=== PATIENT | male | born 1960 | race Caucasian/White ===

== ENCOUNTER → 2022-08-04 16:18 | Outpatient (CLI) | payer OTHER, SELFPAY ==
--- NOTE | ~2022-08-04 | XR_ITS ---
XR hand LT min 3V DATE: 08/04/2022 16:40 INDICATION: Hand pain and numbness TECHNIQUE: 3 views COMPARISON: None FINDINGS: There is joint space narrowing and spurring at the radiocarpal joint consistent with osteoa rthritis. Some benign cysts of the carpal bones are noted. There is mild osteoarthritic change at the second, third and fourth the carpophalangeal joints and mi ld osteophytic changes of the interphalangeal joints. No fracture, dislocation, periosteal reaction or bone destruction, erosive change or chondrocalcinosi s. IMPRESSION: Polyarticular osteoarthritis Reviewed, dictated and finalized at location A. DE SALES PERSON
--- NOTE | ~2022-08-04 | XR_ITS ---
XR wrist LT min 3V DATE: 08/04/2022 16:40 INDICATION: Numbness and pain of hands and wrists TECHNIQUE: 3 views COMPARISON: None FINDINGS: There is pulmonary radiocarpal joint with some spurring. There is some benign cysts of the carpal bones. There is mild osteoarthritis at the first carpometacarpal joint. Osteoarthritic change is noted secon d through fourth metacarpophalangeal joints. No fracture or dislocation, periosteal reaction or bone destruction. No erosive change or chondrocalc inosis. IMPRESSION: Polyarticular osteoarthritis Reviewed, dictated and finalized at location A. SCHOOL HISTORY TEACHER
--- NOTE | ~2022-08-04 | XR_ITS ---
XR wrist RT min 3V DATE: 08/04/2022 16:40 INDICATION: Pain and numbness of wrist and hands TECHNIQUE: 3 views COMPARISON: None FINDINGS: There is osteoarthritis at the second and third metacarpophalangeal joints. There are benig n cysts of the carpal bones. No fracture, dislocation, periosteal reaction or bone destruction. IMPRESSION: Osteoarthritis Reviewed, dictated and finalized at location A. [employer] IMPRESSION: Osteoarthritis
--- NOTE | ~2022-08-04 | XR_ITS ---
XR hand RT min 3V DATE: 08/04/2022 16:40 INDICATION: Numbness and pain of the hands. TECHNIQUE: 3 views COMPARISON: None FINDINGS: Is there are benign cysts are noted at the carpal bones. There is mild joint space narrowin g and spurring at the third metacarpophalangeal joint and mild osteoarthritic change at some of the i nterphalangeal joints. No fracture, dislocation, periosteal reaction or bone destruction, erosive change or chondrocalcinosi s. IMPRESSION: Mild polyarticular osteoarthritis Reviewed, dictated and finalized at location A. IMEDIA AUTHORING SPECIALIST
== END ==
PROVIDERS: PCP Internal Medicine; Visit Provider Internal Medicine
DX: M19.031 Primary osteoarthritis, right wrist (principal); M19.032 Primary osteoarthritis, left wrist; M19.041 Primary osteoarthritis, right hand; M19.042 Primary osteoarthritis, left hand
CPT/HCPCS: 73110; 73130

== ENCOUNTER 2023-05-20 08:41 | Outpatient (CLI) | payer BC, SELFPAY ==
--- NOTE | 2023-05-20 10:30 | NEURO_ITS ---
Impression: # Complains of nocturnal paresthesia. History of right Bicep tendon rupture couple years ago. # Bilateral Carpal Tunnel Syndrome, left more than right. # No ulnar neuropathy. # Left ulnar to median cross innervation noted. # Needle/EMG exam on the right abnormal because of bicep rupture/surgery unrelated to present problem. Nerve Conduction Studies Anti Sensory Summary Table Stim Site NR Peak (ms) P-T Amp (?V) Site1 Site2 Delta-P (ms) Dist (cm) Vaibhav (m/s) Left Median Anti Sensory (2-3nd Digit) Wrist 5.5 24.4 Wrist 2-3nd Digit 5.5 14.0 25 Wrist 6.3 18.9 Wrist 2-3nd Digit 5.5 14.0 25 Right Median Anti Sensory (2-3nd Digit) Wrist 4.7 10.9 Wrist 2-3nd Digit 4.7 14.0 30 Wrist 4.6 8.6 Wrist 2-3nd Digit 4.7 14.0 30 Left Radial Anti Sensory (Base 1st Digit) Wrist 2.2 39.0 Wrist Base 1st Digit 2.2 0.0 Right Radial Anti Sensory (Base 1st Digit) NO RESPONSE Wrist NR Wrist Base 1st Digit 0.0 Left Ulnar Anti Sensory (5th Digit) Wrist 2.5 65.3 Wrist 5th Digit 2.5 14.0 56 Right Ulnar Anti Sensory (5th Digit) Wrist 2.4 31.8 Wrist 5th Digit 2.4 14.0 58 Motor Summary Table Stim Site NR Onset (ms) O-P Amp (mV) Site1 Site2 Delta-0 (ms) Dist (cm) Vaibhav (m/s) Left Median Motor (Abd Poll Brev) Wrist 5.3 1.5 Elbow Wrist 4.7 27.0 57 Elbow 10.0 2.3 Right Median Motor (Abd Poll Brev) Wrist 4.6 1.3 Elbow Wrist 7.7 28.0 36 Elbow 12.3 1.3 Left Ulnar Motor (Abd Dig Minimi) Wrist 2.6 7.2 A Elbow Wrist 4.6 28.0 61 A Elbow 7.2 6.5 Right Ulnar Motor (Abd Dig Minimi) Wrist 2.4 6.6 A Elbow Wrist 4.9 28.0 57 A Elbow 7.3 6.0 F Wave Studies NR F-Lat (ms) L-R F-Lat (ms) Left Median (Mrkrs) (Abd Poll Brev) 29.29 1.64 Right Median (Mrkrs) (Abd Poll Brev) 30.92 1.64 Left Ulnar (Mrkrs) (Abd Dig Min) 29.74 0.00 Right Ulnar (Mrkrs) (Abd Dig Min) 29.75 0.00 EMG Side Muscle Nerve Root Ins Act Fibs Amp Dur Recrt Comment Right 1stDorInt Ulnar C8-T1 Nml Nml Nml Nml Nml Right Ext Indicis Radial (Post Int) C7-8 Nml Nml Nml Nml Nml Right Ext Digitorum Radial (Post Int) C7-8 Nml Nml Nml Nml Nml Right BrachioRad Radial C5-6 Nml Nml Nml Nml Reduced Right PronatorTeres Median C6-7 Nml Nml Nml Nml Reduced Right Abd Poll Brev Median C8-T1 Nml Nml Incr >12ms Reduced Left 1stDorInt Ulnar C8-T1 Nml Nml Nml Nml Nml Left Ext Indicis Radial (Post Int) C7-8 Nml Nml Nml Nml Nml Left Ext Digitorum Radial (Post Int) C7-8 Nml Nml Nml Nml Nml Left BrachioRad Radial C5-6 Nml Nml Nml Nml Nml Left PronatorTeres Median C6-7 Nml Nml Nml Nml Nml Left Abd Poll Brev Median C8-T1 Nml Nml Incr >12ms Reduced Right Biceps Musculocut C5-6 Nml Nml Nml Nml Nml Right Triceps Radial C6-7-8 Nml Nml Nml Nml Nml Right Deltoid Axillary C5-6 Nml Nml Nml Nml Nml Left Biceps Musculocut C5-6 Nml Nml Nml Nml Nml Left Triceps Radial C6-7-8 Nml Nml Nml Nml Nml Left Deltoid Axillary C5-6 Nml Nml Nml Nml Nml MTDD
== END 2023-05-20 08:42 | disposition home or self-care (01) ==
LOC: ANHNEURO 08:44
PROVIDERS: PCP Internal Medicine; Visit Provider Internal Medicine
DX: G56.03 Carpal tunnel syndrome, bilateral upper limbs (principal)
CPT/HCPCS: 95886; 95911

== ENCOUNTER 2023-10-22 02:24 | Day surgery (SDC) | payer BC, SELFPAY ==
[2023-10-01 10:53] VITALS: BMI 26.6
--- NOTE | 2023-10-20 10:51 | SUR.PREOP ---
Patient called regarding upcoming procedure. Reviewed preop instructions, appointment times, and procedure prep.
[2023-10-22 06:44] VITALS: BP 119/67; PULSE 74; RESP 18; TEMP 36.1; O2SAT 99
[2023-10-22] MEDS: LACTATED RINGERS 1,000 ML 150 ML IV CONT (06:56)
--- NOTE | 2023-10-22 08:06 | P.PNAN_ITS ---
Anes - Initial Pre Proc Eval Procedure: Operation Date: 10/22/23 08:00 Proposed Procedures p Screening Colonoscopy - Kd Woods DO Date/Time: 10/22/23 08:06 Surgeon: Kd Woods DO Pre Op Diagnosis: hx colon polyps Patient Data Age: 62 Gender: M Height: 1.7 m Weight: 77.3 kg Last Vital Signs Temp 97 F L 10/22/23 06:44 Pulse 74 10/22/23 06:44 Resp 18 10/22/23 06:44 BP 119/67 10/22/23 06:44 Pulse Ox 99 10/22/23 06:44 O2 Del Method Room Air 10/22/23 06:44 Allergies Allergy/AdvReac Type Severity Reaction Status Date / Time No Known Allergies Allergy Unverified 10/22/23 06:43 Home Medications Medication Instructions Recorded Confirmed Type atorvastatin 40 mg tablet 40 mg PO DAILY 05/26/23 10/01/23 History escitalopram oxalate 10 mg tablet 10 mg PO DAILY 05/26/23 10/01/23 History lisinopril 10 1 tablet PO DAILY 05/26/23 10/01/23 History mg-hydrochlorothiazide 12.5 mg tablet zolpidem 10 mg tablet 10 mg PO QHS 05/26/23 10/01/23 History Patient hx anesthesia problems: none Family hx anesthesia problems: none Results Review: All pre-operative results and documents have been reviewed as part of the pre- operative evaluation. [facility] Family History Family History (Updated 04/22/19 @ 08:44 by DOCTOR UNKNOWN) Other Diabetes mellitus Social History Social History (Updated 05/26/23 @ 09:30 by Maddy Clifton MA) Smoking packs per day: 1 Smoking cigarettes per day: 20.0 Years smoked: 20 Smoking pack-years: 20.00 Smoking status: Former smoker Tobacco type: cigarettes Smoking end date: 09/28/16 Alcohol intake: current Drinks per week: 6 Alcohol use details: BEERS Substance use: never Substance use type: does not use Lack of Transportation: No Lack of Food: Never True Current Housing: I Have Housing Concerned About Future Housing: No Difficulty Paying Gas/Electric Bills: No Difficulty Paying for Meds: No Currently Unemployed: No Education: Bachelor's Degree Difficulty w/ Childcare or Family Care: No Living arrangements: with family Spiritual care concerns: No Anes - Eval Final PreProcedure Day of Procedure 10/22/23 08:06 Patient weight: normal Heart: regular rate and rhythm Lungs: clear to auscultation Airway: Mallampati scale class II Neurological: alert and oriented Last oral intake: >/= 8 hours ASA classification: II Emergent: no Anesthetic plan: proceed Anesthesia type and monitoring: general GIVS and standard monitoring Results Review: All pre-operative results and documents have been reviewed as part of the pre- operative evaluation. Informed Consent: The patient's anesthetic plan and its attendant risks and benefits were discussed with the patient/family/POA. Questions were solicited and answers provided to the satisfaction of the patient/family/POA.
--- NOTE | 2023-10-22 08:07 | PM.IMHP ---
H&P: HPI History of Present Illness Date/Time: 10/22/23 08:07 Chief Complaint: history of colon polyps Narrative: this is a 62-year-old man presents for colonoscopy. His last colonoscopy was 6 years ago and was normal. Before that he did history of polyps on colonoscopy. He denies any hematochezia or melena. He denies any family history of colon cancer. Review of Systems Review of Systems: All systems reviewed & are unremarkable except as noted in HPI and below Constitutional: Constitutional: Denies chills, Denies fever(s), Denies headache(s) and Denies weight loss Eyes: Eyes: Denies change in vision ENT: Denies dizziness, Denies headache(s), Denies neck mass and Denies throat swelling Cardiovascular: Cardiovascular: Denies chest pain, Denies lightheadedness and Denies dyspnea Respiratory: Respiratory: Denies cough, Denies dyspnea and Denies wheezing Gastrointestinal: Gastrointestinal: Denies abdominal pain, Denies change in bowel habits, Denies nausea and Denies vomiting Genitourinary: Genitourinary: Denies hematuria and Denies dysuria Musculoskeletal: Musculoskeletal: Reports as per HPI Integumentary/Breasts: Skin/Breast: Reports as per HPI Neurologic: Denies dizziness and Denies headache(s) Allergic/Immunologic: Allergic/Immunologic: Denies throat swelling and Denies wheezing [facility] Family History Family History (Updated 04/22/19 @ 08:44 by DOCTOR UNKNOWN) Other Diabetes mellitus Social History Social History (Updated 05/26/23 @ 09:30 by Maddy Clifton MA) Smoking packs per day: 1 Smoking cigarettes per day: 20.0 Years smoked: 20 Smoking pack-years: 20.00 Smoking status: Former smoker Tobacco type: cigarettes Smoking end date: 09/28/16 Alcohol intake: current Drinks per week: 6 Alcohol use details: BEERS Substance use: never Substance use type: does not use Lack of Transportation: No Lack of Food: Never True Current Housing: I Have Housing Concerned About Future Housing: No Difficulty Paying Gas/Electric Bills: No Difficulty Paying for Meds: No Currently Unemployed: No Education: Bachelor's Degree Difficulty w/ Childcare or Family Care: No Living arrangements: with family Spiritual care concerns: No Meds Home Medications and Allergies Home Medications Medication Instructions Recorded Confirmed Type atorvastatin 40 mg tablet 40 mg PO DAILY 05/26/23 10/01/23 History escitalopram oxalate 10 mg tablet 10 mg PO DAILY 05/26/23 10/01/23 History lisinopril 10 1 tablet PO DAILY 05/26/23 10/01/23 History mg-hydrochlorothiazide 12.5 mg tablet zolpidem 10 mg tablet 10 mg PO QHS 05/26/23 10/01/23 History Allergies Allergy/AdvReac Type Severity Reaction Status Date / Time No Known Allergies Allergy Unverified 10/22/23 06:43 Vital Signs Vital Signs - 24 hr 10/22/23 06:44 Temperature 36.1 C L Pulse Rate 74 Respiratory Rate 18 Blood Pressure 119/67 Pulse Oximetry 99 Oxygen Delivery Room Air Exam Const: General: no acute distress and alert Orientation/consciousness: patient oriented x3 HENMT: Head: normocephalic and atraumatic Ears: hearing grossly normal bilaterally Face/Nose/Sinus: Normal nares present Mouth: Yes Normal oral and palatal mucosa present Eyes: Periorbital: periorbital findings normal Sclera: sclerae normal EOM: EOMs intact bilaterally Neck: Neck: normal visual inspection, no lymphadenopathy and trachea midline Chest: Chest palpation & inspection: normal inspection of the chest Resp: Effort & Inspection: normal respiratory effort Auscultation: clear to auscultation bilaterally Cardio: Jugular venous distension: no JVD Rate: regular rate Rhythm: regular rhythm Heart sounds: S1 normal heart sound present and S2 normal heart sound present Peripheral pulses: Peripheral pulses 2+ throughout GI: Inspection: normal to inspection GI Palp: Yes Soft to palpation, No Tenderness to palpat
[2023-10-22 08:51] VITALS: BP 108/68; PULSE 78; RESP 18; O2SAT 98
[2023-10-22 09:01] VITALS: BP 111/72; PULSE 68; RESP 17; O2SAT 100
[2023-10-22 09:11] VITALS: BP 112/67; PULSE 67; RESP 22; O2SAT 100
== END 2023-10-22 09:21 | disposition home or self-care (01) ==
PROVIDERS: PCP Internal Medicine; Visit Provider Surgery
PROC: 0DJD8ZZ Inspection of Lower Intestinal Tract, Via Natural or Artificial Opening Endoscopic (ICD-10-PCS; CPT 45378; principal; 2023-10-22 08:00)
DX: Z12.11 Encounter for screening for malignant neoplasm of colon (principal); Z86.010 Personal history of colon polyps; Z87.891 Personal history of nicotine dependence
CPT/HCPCS: 45378; J1596; J2001; J2704; J7120

== ENCOUNTER 2024-05-16 08:10 | Outpatient (CLI) | payer BC, SELFPAY ==
--- NOTE | ~2024-05-16 | XR_ITS ---
EXAMINATION: XR chest 2V DATE: 05/16/2024 10:09 INDICATION: Fatigue and dyspnea TECHNIQUE: frontal and lateral views of the chest were obtained. COMPARISON: Chest radiograph dated 10/08/2016 FINDINGS: Unchanged small calcified nodule at the right costophrenic angle consistent with old granulomatous di sease. No other airspace opacities, pulmonary edema, pleural effusion or pneumothorax. The cardiomedi astinal silhouette is normal. Visualized bones and soft tissues are unremarkable. IMPRESSION: 1. No acute cardiopulmonary disease. Reviewed, dictated and finalized at location A.
--- NOTE | 2024-05-16 08:21 | EST_ITS ---
Patient Info Name: JoséL uis Nascimento Age: 63 years : 1960 Gender: Male Ht: 66 in Wt: 167 lbs BSA: 1.89 m2 HR: 72 bpm BP: 127 / 76 mmHg Heart Rhythm: Sinus Rhythm Technical Quality: Good Exam Date: 05/16/2024 9:21 AM Exam Location: Echo Lab Patient Status: Outpatient Admit Date: 05/16/2024 Staff Ordering Physician: Percy Humphries MD Attending Provider: Percy Humphries MD Exam Type: CA stress test treadmill w NM Study Info A treadmill exercise stress test was performed. History/Risk Factors Hypertension: Yes Dyslipidemia: Yes Family History: Coronary Artery Disease Summary 1. 1. Negative Mikhail exercise stress test for ischemic ST changes by ECG criteria. 2. 2. Good functional capacity, achieving 10 METs of workload. 3. 3. Hypertensive response to exercise. 4. 4. Appropriate HR response to exercise. 5. 5. Appropriate HR recovery at 1 minute post exercise. 6. 6. Nuclear scan to follow and will be reported separately. Please correlate with it. Protocol: Mikhail Stress ECG Details Stage: REST Duration (min): 2 min : 49 sec Speed (mph): 0.0 Grade (%): 0 HR (bpm): 71 SBP (mmHg): 127 DBP (mmHg): 76 METS: --- Stage: REST Duration (min): 17 min : 43 sec Speed (mph): 0.0 Grade (%): 0 HR (bpm): 84 SBP (mmHg): 127 DBP (mmHg): 76 METS: --- Stage: STAGE 1 Duration (min): 1 min : 0 sec Speed (mph): 1.7 Grade (%): 10 HR (bpm): 92 SBP (mmHg): 127 DBP (mmHg): 76 METS: --- Stage: STAGE 1 Duration (min): 2 min : 0 sec Speed (mph): 1.7 Grade (%): 10 HR (bpm): 103 SBP (mmHg): 127 DBP (mmHg): 76 METS: --- Stage: STAGE 1 Duration (min): 3 min : 0 sec Speed (mph): 1.7 Grade (%): 10 HR (bpm): 103 SBP (mmHg): 171 DBP (mmHg): 76 METS: --- Stage: STAGE 2 Duration (min): 1 min : 0 sec Speed (mph): 2.5 Grade (%): 12 HR (bpm): 113 SBP (mmHg): 171 DBP (mmHg): 76 METS: --- Stage: STAGE 2 Duration (min): 2 min : 0 sec Speed (mph): 2.5 Grade (%): 12 HR (bpm): 118 SBP (mmHg): 171 DBP (mmHg): 76 METS: --- Stage: STAGE 2 Duration (min): 3 min : 0 sec Speed (mph): 2.5 Grade (%): 12 HR (bpm): 121 SBP (mmHg): 196 DBP (mmHg): 89 METS: --- Stage: STAGE 3 Duration (min): 1 min : 0 sec Speed (mph): 3.4 Grade (%): 14 HR (bpm): 134 SBP (mmHg): 196 DBP (mmHg): 89 METS: --- Stage: STAGE 3 Duration (min): 2 min : 0 sec Speed (mph): 3.4 Grade (%): 14 HR (bpm): 143 SBP (mmHg): 196 DBP (mmHg): 89 METS: --- Stage: STAGE 3 Duration (min): 2 min : 0 sec Speed (mph): 3.4 Grade (%): 14 HR (bpm): 143 SBP (mmHg): 196 DBP (mmHg): 89 METS: --- Stage: RECOVERY Duration (min): 0 min : 59 sec Speed (mph): 0.0 Grade (%): 0 HR (bpm): 140 SBP (mmHg): 234 DBP (mmHg): 78 METS: --- Stage: RECOVERY Duration (min): 1 min : 59 sec Speed (mph): 0.0 Grade (%
[2024-05-16 11:40] LABS: Anion Gap 7 mmol/L (4-12); Carbon Dioxide 28 mmol/L (21-32); Chloride 103 mmol/L (98-108); Potassium 4.6 mmol/L (3.5-5.1); Sodium 138 mmol/L (136-145)
[2024-05-16 11:41] LABS: Blood Urea Nitrogen 22 mg/dL (7-18); Calcium 9.3 mg/dL (8.5-10.1); Estimated Glomerular Filt Rate 48; Glucose 120 mg/dL (70-99); Osmolality Calculated 290 mOsm/kg (285-295)
--- NOTE | 2024-05-17 08:52 | WPDCARIOSTRE ---
Nuclear Stress Test INDICATIONS Indications: Chest pain PROCEDURE Procedure Performed: Myocardial Perf Spect-Multi Procedure: Patient exercised on a standard Mikhail protocol and at peak exercise was injected with 30.8 mCi of cardiolyte. Multiple tomographic images were obtained. These are of excellent quality. There is no perfusion defects with stress imaging. A separate resting images were obtained after patient was injected with 10.2 mCi of cardiolyte. Multiple tomographic images were obtained. These are of excellent quality. There is no perfusion defects with rest imaging. CONCLUSION Conclusion: 1. Normal myocardial perfusion imaging demonstrating no perfusion defects with stress or rest imaging. 2. No evidence of reversible ischemia. 3. Left ventriculogram demonstrates normal measured ejection fraction of 55% with no wall motion abnormalities. 4. TID score 0.96 is normal.
== END 2024-05-16 08:11 | disposition home or self-care (01) ==
PROVIDERS: PCP Internal Medicine; Visit Provider Internal Medicine
DX: I10 Essential (primary) hypertension (principal); R07.9 Chest pain, unspecified; R06.02 Shortness of breath
CPT/HCPCS: 36415; 71046; 78452; 80048; 93017; A9502

== ENCOUNTER 2024-07-06 10:44 | Outpatient (CLI) | payer BC, SELFPAY ==
--- NOTE | ~2024-07-06 | XR_ITS ---
Left wrist Technique: PA, oblique, lateral, and ulnar deviation views were obtained. Clinical History: Pain Findings: No acute fracture or dislocation is seen. There is moderate degenerative change of the radi olunate articulation. Remaining joint spaces are intact.. Soft tissues are unremarkable. Impression: Moderate degenerative change of the radiolunate articulation. Reviewed, dictated and finalized at location . Impression: Moderate degenerative change of the radiolunate articulation.
--- NOTE | ~2024-07-06 | XR_ITS ---
Left Hand Technique: PA, oblique, and lateral views were obtained. Clinical History: Pain Findings: No acute fracture or dislocation is seen. Osseous alignment is anatomic. Joint spaces are p reserved. Soft tissues are unremarkable. Impression: Unremarkable left hand. Reviewed, dictated and finalized at location M. Impression: Unremarkable left hand.
--- NOTE | ~2024-07-06 | XR_ITS ---
Right wrist Technique: PA, oblique, lateral, and ulnar deviation views were obtained. Clinical History: Pain Findings: No acute fracture or dislocation is seen. Osseous alignment is anatomic. There is minimal d egenerative change of the triscaphe joint. Soft tissues are unremarkable. Impression: Minimal degenerative change of the triscaphe joint. Reviewed, dictated and finalized at location . Impression: Minimal degenerative change of the triscaphe joint.
--- NOTE | ~2024-07-06 | XR_ITS ---
AP and lateral views of the bilateral hips Clinical history: Pain Findings: No acute fracture or dislocation is seen. Osseous alignment is anatomic. Bilateral hip arth roplasties are in place.. Soft tissues are unremarkable. Impression: No acute abnormality. Bilateral hip arthroplasties. Reviewed, dictated and finalized at [facility]. Impression: No acute abnormality. Bilateral hip arthroplasties.
--- NOTE | ~2024-07-06 | XR_ITS ---
Right Hand Technique: PA, oblique, and lateral views were obtained. Clinical History: Pain Findings: No acute fracture or dislocation is seen. Osseous alignment is anatomic. Joint spaces are p reserved. Soft tissues are unremarkable. Impression: Unremarkable right hand. Reviewed, dictated and finalized at location M. Impression: Unremarkable right hand.
== END 2024-07-06 10:45 | disposition home or self-care (01) ==
PROVIDERS: PCP Internal Medicine; Visit Provider Internal Medicine
DX: M19.031 Primary osteoarthritis, right wrist (principal); M19.032 Primary osteoarthritis, left wrist; Z96.643 Presence of artificial hip joint, bilateral; M19.042 Primary osteoarthritis, left hand
CPT/HCPCS: 73110; 73130; 73521

== ENCOUNTER 2024-07-06 11:10 | Outpatient (CLI) | payer BC, SELFPAY ==
[2024-07-06 16:52] LABS: Hemoglobin 13.7 g/dL (14.0-18.0); Mean Corpuscular HGB Conc 31.1 g/dl (32-36); Mean Corpuscular Hemoglobin 29.1 pg (26-34); Mean Corpuscular Volume 93.6 fl (80-100); Platelet Count Result 289 k/mm3 (150-375); Red Cell Distribution Width 14.6 % (11.5-14.5); White Blood Count 7.1 K/mm3 (4.5-10.0)
[2024-07-06 16:58] LABS: Alanine Aminotransferase 33 U/L (6-50); Albumin Level 4.7 g/dL (3.5-5.1); Alkaline Phosphatase 73 U/L (38-126); Anion Gap 7 mmol/L (4-12); Aspartate Amino Transferase 46 U/L (17-59); Bilirubin,Total 0.5 mg/dL (0.2-1.3); Blood Urea Nitrogen 17 mg/dL (9-20); CRP 0.8 mg/dL (<1.0); Calcium 9.8 mg/dL (8.4-10.2); Carbon Dioxide 26 mmol/L (22-30); Chloride 104 mmol/L (98-107); Creatine Kinase 215 U/L (55-170); Estimated Glomerular Filt Rate > 60; Glucose 105 mg/dL (65-110); Potassium 4.8 mmol/L (3.4-5.0); Sodium 137 mmol/L (137-145)
[2024-07-06 17:03] LABS: Rheumatoid Factor < 12.0 IU/ML (<12)
[2024-07-06 17:31] LABS: Erythrocyte Sedimentation Rate 14 mm/hr (0-20)
[2024-07-08 14:27] LABS: Iron 82 ug/dL (49-181)
[2024-07-08 14:33] LABS: Immature Reticulocyte Fraction 24.5 % (3.0-15.9); Reticulocyte Hemoglobin Conten 30.5 pg (28.2-36.6); Reticulocyte Percent 3.67 % (0.7-4.3); Reticulocytes Absolute 0.17 10^6/uL (0.02-0.10)
[2024-07-08 14:48] LABS: Aldolase 6.8 U/L (< OR = 8.1)
[2024-07-08 15:14] LABS: Cyclic Citrullinated Peptide <16 UNITS
[2024-07-08 15:32] LABS: Folic Acid 18.3 ng/mL (2.76->20)
== END 2024-07-06 11:11 | disposition home or self-care (01) ==
LOC: ANHGOSHLAB 11:12
PROVIDERS: PCP Internal Medicine; Visit Provider Internal Medicine
DX: D64.9 Anemia, unspecified (principal); M79.609 Pain in unspecified limb; M79.601 Pain in right arm
CPT/HCPCS: 36415; 80053; 82085; 82550; 82607; 82728; 82746; 83540; 85027; 85046; 85652; 86038; 86039; 86140; 86200; 86430

== ENCOUNTER 2025-07-26 08:54 | Outpatient (CLI) | payer BC, SELFPAY ==
--- NOTE | 2025-08-16 12:54 | WPDHOLTEREM ---
Holter/Event Monitor Holter/Event Monitor Date of procedure: 07/26/25 Holter/Event Procedure: Event Monitor Indications: Palpitations Conclusion: 1. 14 days event monitor on 07/26/25. 2. Predominant rhythm is sinus rhythm. HR range 51-169 bpm; average HR 88 bpm. 3. There are occasional premature supraventricular complexes, rare supraventricular couplets, and rare supraventricular triplets. There are 2 episodes of supraventricular tachycardia with fastest at 169 bpm and longest lasting 12 beats. 4. There are rare premature ventricular complexes. No ventricular tachycardia. 5. No significant pauses greater than 3 seconds. 6. No symptoms available for correlation.
== END 2025-07-26 08:55 | disposition home or self-care (01) ==
PROVIDERS: PCP Internal Medicine; Visit Provider Internal Medicine
DX: I49.8 Other specified cardiac arrhythmias (principal); I47.10 Supraventricular tachycardia, unspecified; I49.1 Atrial premature depolarization; I49.3 Ventricular premature depolarization
CPT/HCPCS: 93246

== ENCOUNTER 2025-08-16 08:21 | Outpatient (CLI) | payer BC, SELFPAY ==
--- NOTE | ~2025-08-16 | CT_ITS ---
EXAMINATION:CT lung screening DATE: 08/16/2025 08:48 INDICATION: Screening TECHNIQUE: Computed tomography (CT) of the chest was performed without intravenous contrast. The dose-length product (DLP) was 144.74 mGy-cm. COMPARISON: None. FINDINGS: No suspicious lung nodules or masses. No gross acute intrathoracic process. Heart size normal with no significant pericardial effusion or bulky lymphadenopathy. Moderately extensive coronary artery calcification and atherosclerotic vascular calcification. Degenerative changes of the bones which otherwise appear intact. No acute process seen in the visualized upper abdomen or extrathoracic soft tissues. Mild to moderate fatty liver changes. IMPRESSION: 1. No suspicious lung nodule. Lung RADS 1. Recommend follow-up surveillance low- dose lung cancer screening chest CT in 12 months. 2. Several chronic appearing findings as above. Reviewed, dictated and finalized at location A. ANGE TROUBLE SHOOTER IMPRESSION: 1. No suspicious lung nodule. Lung RADS 1. Recommend follow-up surveillance low -dose lung cancer screening chest CT in 12 months. 2. Several chronic appearing findings as above.
== END 2025-08-16 08:22 | disposition home or self-care (01) ==
LOC: MICIMG 08:22
PROVIDERS: PCP Internal Medicine; Visit Provider Internal Medicine
DX: Z12.2 Encounter for screening for malignant neoplasm of respiratory organs (principal); Z87.891 Personal history of nicotine dependence
CPT/HCPCS: 71271

== ENCOUNTER 2025-08-17 09:51 | Outpatient (CLI) | payer BC, SELFPAY ==
--- NOTE | ~2025-08-17 | US_ITS ---
EXAMINATION: US right upper quadrant DATE: 08/17/2025 10:17 INDICATION: Nausea TECHNIQUE: Multiple grayscale and Doppler ultrasound images of the abdomen were obtained. COMPARISON: None FINDINGS: The pancreatic head and body are normal in appearance. The pancreatic tail is not visualized. Liver has normal contour, with a smooth surface. There is increased parenchymal echogenicity and coarsened echotexture consistent with diffuse hepatic steatosis. Nonspecific 2.9 x 1.8 x 1.6 cm hypoechoic hepatic lesion along the jose daniel hepatis potentially related to focal fatty sparing. No other hepatic lesions identified. No intrahepatic biliary duct dilation suspected. Portal venous flow was seen in the hepatopetal, normal direction and has normal Doppler waveform. The visualized proximal inferior vena cava is normal. The gallbladder is normal in appearance. There is no cholelithiasis. The common bile duct measures 4 mm, which is normal. Sonographic Forbes sign was reported as negative by the international relations professor. Visualized portion of the right kidney demonstrates normal contour and echogenicity with no hydronephrosis. IMPRESSION: 1. Diffuse hepatic steatosis with 2.9 x 1.8 x 1.6 cm nonspecific hypoechoic hepatic lesion along the jose daniel hepatis, potentially related to focal fatty sparing would recommend further evaluation with pre and postcontrast MRI or CT. Reviewed, dictated and finalized at location A. LLURGICAL ENGINEERING TECHNICIAN IMPRESSION: 1. Diffuse hepatic steatosis with 2.9 x 1.8 x 1.6 cm nonspecific hypoechoic hep atic lesion along the jose daniel hepatis, potentially related to focal fatty sparing would recommend further evaluation with pre and postcontrast MRI or CT.
== END 2025-08-17 09:52 | disposition home or self-care (01) ==
LOC: MICIMG 09:51
PROVIDERS: PCP Internal Medicine; Visit Provider Internal Medicine
DX: R11.0 Nausea (principal); K76.0 Fatty (change of) liver, not elsewhere classified
CPT/HCPCS: 76705